=== PATIENT | female | born 1990 | race Caucasian/White ===

== ENCOUNTER 2017-08-27 19:15 | Emergency (ER) | payer BC ==
[2017-08-27 19:41] VITALS: BP 115/62
[2017-08-27] MEDS ORDERED: Acetaminophen TAB* 325 MG PO ONE (20:01)
--- NOTE | 2017-08-27 20:07 | UC ---
Back Pain HPI - HPI Summary HPI Summary: 27 year old female here with back pain and lower abdominal pain that started today. She noticed the back pain with radiation to her lower abdomen this morning, described as aching with no associated urinary symptoms. She denies any n/v/d or any other complaints. - History of Current Complaint Chief Complaint: UCBackPain Stated Complaint: BACK PAIN Time Seen by Provider: 08/27/17 19:44 Hx Last Menstrual Period: 08/09/17 Onset/Duration: Gradual Onset Timing: Constant Character: Dull, Aching Aggravating Factor(s): Nothing Alleviating Factor(s): Nothing Associated Signs And Symptoms: Positive: Negative - Allergies/Home Medications Allergies/Adverse Reactions: Allergies Allergy/AdvReac Type Severity Reaction Status Date / Time No Known Allergies Allergy Verified 08/27/17 19:33 Home Medications: Home Medications Acetaminophen [Acetaminophen Extra Stren] 1,000 mg 08/27/17 [History] PMH/Surg Hx/FS Hx/Imm Hx - Surgical History Surgical History: Yes Surgery Procedure, Year, and Place: 2016 - gastric bypass. 2016 - [place] - Social History Alcohol Use: Occasionally Substance Use Type: None Smoking Status (MU): Never Smoked Tobacco Review of Systems Constitutional: Negative Skin: Negative Eyes: Negative ENT: Negative Respiratory: Negative Cardiovascular: Negative Gastrointestinal: Abdominal Pain Genitourinary: Negative Motor: Negative Neurovascular: Negative Musculoskeletal: Negative Neurological: Negative Psychological: Negative All Other Systems Reviewed And Are Negative: Yes Physical Exam Triage Information Reviewed: Yes Appearance: Well-Appearing, No Pain Distress Vital Signs: Initial Vital Signs Temp 36.5 C 08/27/17 19:35 Pulse 79 08/27/17 19:35 Resp 16 08/27/17 19:35 BP 115/62 08/27/17 19:35 Pulse Ox 99 08/27/17 19:35 ENT: Positive: Normal ENT inspection Neck exam: Normal Respiratory: Positive: Chest non-tender, Lungs clear, Normal breath sounds, No respiratory distress Cardiovascular: Positive: RRR, No Murmur Abdomen Description: Positive: Nontender, No Organomegaly, Soft. Negative: CVA Tenderness (R), CVA Tenderness (L) Musculoskeletal Exam: Normal Neurological: Positive: Alert Skin Exam: Normal Diagnostics - Laboratory Diagnostic Studies Completed/Ordered: UA and hcg ordered Back Pain Course/Dx - Course Course Of Treatment: Patient's UA with leuk. Culture sent. Will treat for back sprain and also for UTI since its unclear picture. - Differential Dx/Diagnosis Differential Diagnosis/HQI/PQRI: Strain, Sprain, Other - UTI Provider Diagnoses: back pain NOS Discharge - Discharge Plan Condition: Good Disposition: HOME Prescriptions: Cephalexin CAP* [Keflex CAP*] 500 mg PO BID #14 cap Fluconazole [Fluconazole 200 mg tab] 200 mg PO ONCE #1 tab Ibuprofen TAB* [Motrin TAB* 800 MG] 800 mg PO BID PRN #20 tab PRN Reason: Pain - Mild To Moderate Patient Education Materials: Low Back Strain (ED), Urinary Tract Infection in Women (ED) Forms: *Work Release Referrals: No Primary Care Phys,NOPCP [Primary Care Provider] -
[2017-08-27] MEDS ORDERED: Ibuprofen TAB* 400 MG PO ONE (21:30)
[2017-08-27] MEDS ORDERED: Cyclobenzaprine TAB* 10 MG PO ONE (21:30)
[2017-08-27] MEDS ORDERED: Cephalexin CAP* 500 MG PO ONE (21:31)
--- NOTE | 2017-08-29 16:01 | UC ---
Progress - Progress Note Progress Note: call pt, ucx (-), stop abx
== END 2017-08-27 22:05 | disposition home or self-care (01) ==
LOC: UCEAST 19:15
DX: M54.9 Dorsalgia, unspecified (principal); Z32.02 Encounter for pregnancy test, result negative
CPT/HCPCS: 81003; 84702; 87086; 99203; A9270-GY; G0463

== ENCOUNTER 2018-06-10 18:29 | Emergency (ER) | payer BC, OTHER ==
--- NOTE | 2018-06-10 19:33 | UC ---
Syncope/New Syncope HPI - HPI Summary HPI Summary: The patient is a 28-year-old female that presents here for evaluation of a syncopal episode. She states that she has had multiple faints in the past. These have usually occurred with blood draws or if she discussed bloody situations. Today's episode happened late this afternoon. She was hilding a bin when working at [employer]. She had no preceding chest pain or shortness of breath. She fell backwards landing on the floor. He thinks she was out for a maximum of a few seconds. She states that coworker said she was pale for about 10 minutes. They gave her something being K she was hypoglycemic. Since arriving to the [facility] she has been asymptomatic and feels fine. She has had a very mild headache. She has a mild backache. And she has a mild left elbow pain. - History Of Current Complaint Chief Complaint: UCUpperExtremity Stated Complaint: ARM AND BACK INJURY Hx Obtained From: Patient Hx Last Menstrual Period: 05/29/18 Onset/Duration: Sudden Onset Activity At Onset: Other - standing Timing: Seconds Frequency: Episodes x___ - 1 Context: Unwitnessed Associated Head Trauma: Yes Pain Intensity: 2 Pain Scale Used: 0-10 Numeric Aggravating Factor(s): Nothing Associated Signs And Symptoms: Positive: Headache, Pain. Negative: AMS, Chest Pain, Decreased Oral Intake, Diarrhea, Diaphoresis, Dizzy, GI Blood Loss, Head Trauma (Remote), Head Trauma (Recent), Lightheadedness, Numbness, Palpitations, Seizure, Shortness Of Breath, Vomiting, Weakness - Allergies/Home Medications Allergies/Adverse Reactions: Allergies Allergy/AdvReac Type Severity Reaction Status Date / Time No Known Allergies Allergy Verified 06/10/18 19:09 Home Medications: Home Medications NK [No Home Medications Reported] 06/10/18 [History Confirmed 06/10/18] PMH/Surg Hx/FS Hx/Imm Hx Previously Healthy: Yes - Surgical History Surgical History: Yes Surgery Procedure, Year, and Place: 2016 - gastric bypass. 2016 - [place] - Family History Known Family History: Positive: Hypertension - Social History Alcohol Use: Occasionally Substance Use Type: None Smoking Status (MU): Never Smoked Tobacco Review of Systems Constitutional: Negative Skin: Negative Eyes: Negative ENT: Negative Respiratory: Negative Cardiovascular: Negative Gastrointestinal: Negative Genitourinary: Negative Motor: Negative Neurovascular: Negative Musculoskeletal: Arthralgia, Myalgia Neurological: Headache Psychological: Negative Is Patient Immunocompromised?: No All Other Systems Reviewed And Are Negative: Yes Physical Exam Triage Information Reviewed: Yes Appearance: Well-Appearing, No Pain Distress, Well-Nourished Vital Signs: Initial Vital Signs Temp 98.1 F 06/10/18 19:01 Pulse 83 06/10/18 19:01 Resp 14 06/10/18 19:01 BP 106/77 06/10/18 19:01 Pulse Ox 100 06/10/18 19:01 Vital Signs Reviewed: Yes Eyes: Positive: Conjunctiva Clear, Other: - perrl/eomi ENT: Positive: Hearing grossly normal, Uvula midline. Negative: Nasal congestion, Nasal drainage, Tonsillar swelling, Tonsillar exudate, Trismus, Muffled voice, Hoarse voice Neck: Positive: Supple, Nontender, No Lymphadenopathy Respiratory: Positive: Chest non-tender, Lungs clear, Normal breath sounds, No respiratory distress, No accessory muscle use Cardiovascular: Positive: RRR, No Murmur Abdomen Description: Positive: Nontender, No Organomegaly, Soft. Negative: CVA Tenderness (R), CVA Tenderness (L) Bowel Sounds: Positive: Present Musculoskeletal: Positive: ROM Intact, Edema @ - over left olecranon Neurological: Positive: Alert Skin Exam: Normal Diagnostics - Laboratory Diagnostic Studies Completed/Ordered: ua- +ketones - EKG Cardiac Rate: NL Cardiac Rhythm: Sinus: Normal Ectopy: None ST Segment: Normal Syncope Course/Dx - Differential Dx/Diagnosis Provider Diagnoses: syncopal episode. back contusion. left elbow contusion Discharge - Sign-Out/Discharge Documenting (check all that apply): Patient Departure All imaging exams completed and their final reports reviewed: No Studies - Discharge Plan Condition: Stable Disposition: HOME Patient Education Materials: Syncope (ED), Contusion in Adults (ED) Additional Instructions: rest fluids tylenol ice see your MD in 4 days - Billing Disposition and Condition Condition: STABLE Disposition: Home
[2018-06-10 21:33] VITALS: BP 113/67
[2018-06-11 11:04] LABS: ABS Basophils 0.1 10^3/ul (0-0.2); ABS Eosinophils 0.1 10^3/ul (0-0.6); ABS Lymphocytes 2.1 10^3/ul (1.0-4.8); ABS Monocytes 0.6 10^3/ul (0-0.8); ABS Neutrophils 7.8 10^3/ul (1.5-7.7); ABS Nucleated RBC 0 10^3/ul; Eosinophil % 0.7 % (0-6); Hematocrit 35 % (35-47); Hemoglobin 11.8 g/dl (12.0-16.0); Lymphocyte % 19.9 % (25-47); Mean Corpuscular HGB Conc 34 g/dl (31-36); Mean Corpuscular Hemoglobin 29 pg (27-31); Mean Corpuscular Volume 87 fL (80-97); Mean Platelet Volume 9.1 um3 (7.4-10.4); Nucleated Red Blood Cells % 0; Platelet Count 268 10^3/ul (150-450); Red Blood Count 4.04 10^6/ul (4.00-5.40); Red Cell Distribution Width 14 % (10.5-15); White Blood Count 10.7 10^3/ul (3.5-10.8)
== END 2018-06-10 21:35 | disposition home or self-care (01) ==
LOC: UCEAST 18:29
DX: R55 Syncope and collapse (principal); S20.229A Contusion of unspecified back wall of thorax, initial encounter; S50.02XA Contusion of left elbow, initial encounter; W18.30XA Fall on same level, unspecified, initial encounter; Y93.89 Activity, other specified; Y92.63 Factory as the place of occurrence of the external cause; Y99.0 Civilian activity done for income or pay; R51 Headache
CPT/HCPCS: 36415; 80048; 81003; 84702; 85025; 93005; 99212; G0463